=== PATIENT | female | born 1935 | race Caucasian/White ===

== ENCOUNTER 2018-12-30 11:29 | Emergency (ER) | payer OTHER ==
[~2018-12-30] VITALS: Ht 154.9 cm; Wt 57.2 kg
[2018-12-30] MEDS ORDERED: DYRENIUM50 MG (11:45)
== END 2018-12-30 13:30 | disposition home or self-care (01) ==
LOC: ER 11:29
DX: L03.116 Cellulitis of left lower limb (principal)